=== PATIENT | male | born 1995 | race Caucasian/White ===

== ENCOUNTER 2016-11-03 13:06 | Emergency (ER) | payer BC ==
[2016-11-03] MEDS ORDERED: Ketorolac 60 MG/2 ML SDV IM ONE (13:29)
[2016-11-03] MEDS ORDERED: Cyclobenzaprine 10 MG Tab PO ONE (13:29)
[2016-11-03 13:30] VITALS: BP 137/78
--- NOTE | 2016-11-03 13:32 | EDM.PDOC ---
ED HPI ENT - General Chief Complaint: ENT Problem Stated Complaint: EAR PAIN Time Seen by Provider: 11/03/16 13:24 Source: Reports: Patient, RN notes reviewed History Limitations: Reports: No limitations - History of Present Illness INITIAL COMMENTS - FREE TEXT/NARRATIVE: 21-year-old gentleman presents emergency department a complaint of bilateral ear pain he states had this for about a month and a half he does have a known history of recurrent ear infections and does have PE tubes in place he also complains of neck pain and chills no fevers - Related Data Allergies/ADRs: Allergies Allergy/AdvReac Type Severity Reaction Status Date / Time procaine HCl [From Novocain] AdvReac Fainting Verified 11/03/16 13:39 Home Meds: Home Meds NK [No Known Home Meds] 11/03/16 [History] Past Medical History HEENT History: Reports: Otitis media (Recurrent) Musculoskeletal History: Reports: Back pain, chronic, Fracture - Past Surgical History HEENT Surgical History: Reports: Myringotomy w tube(s), Other (see below) Other HEENT Surgeries/Procedures: ear reconstruction surgery for infection/cyst that he had. Social & Family History - Tobacco Use Smoking Status *Q: Never Smoker Years of Tobacco use: 8 Second Hand Smoke Exposure: No - Alcohol Use Days Per Week of Alcohol Use: 0 - Recreational Drug Use Recreational Drug Use: No ED ROS ENT - Review of Systems Review Of Systems: See Below Constitutional: Reports: chills HEENT: Reports: Ear pain Respiratory: Reports: No Symptoms Cardiovascular: Reports: No symptoms GI/Abdominal: Reports: No symptoms : Reports: no symptoms Neurological: Reports: Headache ED EXAM, ENT - Physical Exam Exam: See Below Exam Limited By: No limitations General Appearance: alert, WD/WN, no apparent distress Eye Exam: bilateral eye: normal inspection Ears: normal external exam, normal canal, hearing grossly normal, other (PE tubes open and functioning) Nose: normal inspection, normal mucousa, no blood Mouth/Throat: Normal inspection, Normal gums, Normal lips, Normal oropharynx, Normal teeth Head: atraumatic, normocephalic Neck: normal inspection, supple, full range of motion, tender lateral Respiratory/Chest: no respiratory distress, lungs clear, normal breath sounds, no accessory muscle use Cardiovascular: regular rate, rhythm, no murmur Course - Vital Signs Last Recorded V/S: Last Vital Signs Temp 99.0 F 11/03/16 13:30 Pulse 88 11/03/16 13:30 Resp 15 11/03/16 13:30 BP 137/78 11/03/16 13:30 Pulse Ox 97 11/03/16 13:30 - Orders/Labs/Meds Meds: Medications Discontinued Medications Generic Name Dose Route Start Last Admin Trade Name Yasmani PRN Reason Stop Dose Admin Cyclobenzaprine HCl 10 mg 11/03/16 13:29 11/03/16 13:40 Flexeril PO 11/03/16 13:30 10 mg ONETIME ONE Administration Ketorolac Tromethamine 60 mg 11/03/16 13:29 11/03/16 13:39 Toradol IM 11/03/16 13:30 60 mg ONETIME ONE Administration Departure - Departure Time of Disposition: 14:32 Disposition: Home, Self-Care 01 Condition: good Clinical Impression: Otalgia Qualifiers: Laterality: bilateral Qualified Code(s): H92.03 - Otalgia, bilateral Forms: ED Department Discharge Additional Instructions: Take full course of antibiotics, Please followup with your primary care provider in 3-5 days if not better, please call return to the emergency department with worsening of symptoms. - Assessment/Plan Plan: Assessment Acuity = acute Site and laterality = otalgia Etiology = suspicious for bacterial cause Manifestations = chills Location of injury = home Lab values = patient declined Plan I offered him further evaluation and treatment which would include blood work but he has a fear of needles and declined because he's been ill for week and half elected to treat him empirically with Augmentin follow up with primary care in 3-5 days for evaluation Patient was in agreement with the plan all questions were answered, they were instructed to return to the emergency department or call for worsening symptoms. This note was dictated using [employer] voice recognition software please call with any questions.
== END 2016-11-03 14:46 | disposition home or self-care (01) ==
LOC: JP.ED 13:06
DX: H92.03 Otalgia, bilateral (principal); Z96.22 Myringotomy tube(s) status; Z98.890 Other specified postprocedural states; Z88.8 Allergy status to other drugs, medicaments and biological substances
CPT/HCPCS: 96372; 99283; A9270; J1885

== ENCOUNTER 2016-11-08 10:56 | Emergency (ER) | payer BC ==
[2016-11-08 11:16] VITALS: BP 147/87
--- NOTE | 2016-11-08 12:00 | EDM.PDOC ---
[id number] ALSO HEADACHE Time Seen by Provider: 11/08/16 12:00 Source: Reports: Patient, Family History Limitations: Reports: No limitations - History of Present Illness INITIAL COMMENTS - FREE TEXT/NARRATIVE: pt arrived with pain in the sinus area. He has body aches and feels ill. Timing/Duration: Reports: Hour(s):, Getting worse Severity: moderate Associated symptoms: Reports: other (pressure over the sinuses. ) - Related Data Allergies/ADRs: Allergies Allergy/AdvReac Type Severity Reaction Status Date / Time procaine HCl [From Novocain] AdvReac Fainting Verified 11/03/16 13:39 Home Meds: Home Meds Amoxicillin/Potassium Clav [Augmentin 875-125 Tablet] 1 each PO BID #20 tablet 11/03/16 [Rx] Azithromycin [Zithromax] 11/08/16 [History] Past Medical History HEENT History: Reports: Otitis media Musculoskeletal History: Reports: Back pain, chronic, Fracture - Infectious Disease History Infectious Disease History: Reports: Chicken pox - Past Surgical History HEENT Surgical History: Reports: Myringotomy w tube(s), Other (see below) Other HEENT Surgeries/Procedures: ear reconstruction surgery for infection/cyst that he had. Social & Family History - Tobacco Use Smoking Status *Q: Current Every Day Smoker Years of Tobacco use: 10 Packs/Tins Daily: 0.1 Second Hand Smoke Exposure: No - Caffeine Use Caffeine Use: Reports: Soda - Alcohol Use Days Per Week of Alcohol Use: 0 - Recreational Drug Use Recreational Drug Use: No ED ROS ENT - Review of Systems Review Of Systems: See Below Constitutional: Reports: fever, chills, malaise HEENT: Reports: Other (pressure over the sinuses. ) Respiratory: Reports: No Symptoms Cardiovascular: Reports: No symptoms Endocrine: Reports: no symptoms GI/Abdominal: Reports: No symptoms : Reports: no symptoms Musculoskeletal: Reports: no symptoms, muscle pain ED EXAM, ENT - Physical Exam Exam: See Below Text/Narrative:: Pt arrived with total body aches and an elevated temp. e Exam Limited By: No limitations General Appearance: alert, moderate distress Ears: normal TMs Nose: normal inspection Mouth/Throat: Normal inspection Head: atraumatic Neck: normal inspection Respiratory/Chest: no respiratory distress Cardiovascular: regular rate, rhythm, tachycardia GI/Abdominal: soft, non tender (Male) Exam: Deferred Rectal (Males) Exam: Deferred Back: normal inspection Neurological: alert, oriented, normal cognition Skin: Warm Course - Vital Signs Last Recorded V/S: Last Vital Signs Temp 39.6 C H 11/08/16 13:19 Pulse 115 H 11/08/16 11:49 Resp 16 11/08/16 11:49 BP 147/87 H 11/08/16 11:49 Pulse Ox 97 11/08/16 11:49 - Orders/Labs/Meds Labs: Laboratory Tests 11/08/16 11/08/16 Range/Units 12:11 12:11 WBC 9.1 (4.5-11.0) K/uL RBC 5.26 (4.30-5.90) M/uL Hgb 15.2 H (12.0-15.0) g/dL Hct 46.5 (40.0-54.0) % MCV 88 (80-98) fL MCH 29 (27-31) pg MCHC 33 (32-36) % Plt Count 270 (150-400) K/uL Neut % (Auto) 68 H (36-66) % Lymph % (Auto) 15 L (24-44) % Hawkins % (Auto) 15 H (2-6) % Eos % (Auto) 1 L (2-4) % Baso % (Auto) 1 (0-1) % Sodium 138 L (140-148) mmol/L Potassium 4.4 (3.6-5.2) mmol/L Chloride 103 (100-108) mmol/L Carbon Dioxide 27 (21-32) mmol/L Anion Gap 12.4 (5.0-14.0) mmol/L BUN 16 (7-18) mg/dL Creatinine 0.9 (0.8-1.3) mg/dL Est Cr Clr Drug Dosing 107.80 mL/min Estimated GFR (MDRD) > 60 (>60) Glucose 88 (74-106) mg/dL Calcium 8.8 (8.5-10.1) mg/dL Meds: Medications Discontinued Medications Generic Name Dose Route Start Last Admin Trade Name Freq PRN Reason Stop Dose Admin Ibuprofen 600 mg 11/08/16 13:52 11/08/16 14:03 Motrin PO 11/08/16 13:53 600 mg ONETIME ONE Administration - Re-Assessments/Exams Free Text/Narrative Re-Assessment/Exam: 11/08 Pt arrived chilling and having total body aches. He has recently been treated for sinusitis. He is on a z pack at this time. He started feeling alot more ill last nite. he was chilling and started to have the body aches. his wbc is not elevated His influ b is pos. His sinus views do not look bad. 11/08/16 13:56 11/08/16 13:56 Departure - Departure Time of Disposition: 13:22 Disposition: Home, Self-Care 01 Condition: fair Clinical Impression: Influenza B, Chronic sinus infection Instructions: Influenza, Adult, [id number] Referrals: PCP,None [Primary Care Provider] - Forms: ED Department Discharge Care Plan Goals: tylenol and motrin for fever, tamaflu 75 bid for 5 days, ont with the zpack he is on pudh fluids.
[2016-11-08] MEDS ORDERED: Ibuprofen 600 MG Tab PO ONE (13:52)
--- NOTE | 2016-11-09 10:15 | CR ---
Sinus Less 4V INDICATION: pressure over sinuses FINDINGS: Negative paranasal sinuses. Frontal, sphenoid, ethmoid, and maxillary sinuses are clear.
== END 2016-11-08 14:32 | disposition home or self-care (01) ==
LOC: JP.ED 10:56
DX: J10.1 Influenza due to other identified influenza virus with other respiratory manifestations (principal); J32.9 Chronic sinusitis, unspecified; F17.210 Nicotine dependence, cigarettes, uncomplicated; Z88.8 Allergy status to other drugs, medicaments and biological substances; Z96.22 Myringotomy tube(s) status; Z98.890 Other specified postprocedural states
CPT/HCPCS: 36415; 70210; 80048; 85025; 87804; 99284; A9270